=== PATIENT | female | born 1965 | race Caucasian/White ===

== ENCOUNTER 2021-09-08 10:59 | Emergency (ER) | payer OTHER ==
[2021-09-08] MEDS ORDERED: Sodium Chloride 0.9% 10 ML Syringe FLUSH PRN (11:19)
[2021-09-08] MEDS ORDERED: Ondansetron 4 MG/2 ML SDV IVPUSH ONE (11:21)
[2021-09-08] MEDS ORDERED: Ketorolac 30 MG/ML SDV IVPUSH ONE (11:21)
[2021-09-08] MEDS ORDERED: Sodium Chloride 0.9% 1,000 ML IV SCH (11:30)
[2021-09-08] MEDS ORDERED: Iopamidol 755 Mg/ML 100 ML Bottle IV ONE (11:54)
[2021-09-08] MEDS: Morphine 2 MG/ML SYRINGE IVPUSH ONE ×2 (12:04→13:16)
[2021-09-08 13:37] VITALS: BP 128/74; PULSE 78
== END 2021-09-08 13:35 | disposition home or self-care (01) ==
LOC: FB.ED 10:59
DX: K57.32 Diverticulitis of large intestine without perforation or abscess without bleeding (principal); Z79.899 Other long term (current) drug therapy
CPT/HCPCS: 36410; 36415; 74177; 80053; 81001; 82150; 83690; 85025; 96374; 96375; 99283; 99284-25; J1885; J2270; J2405; J7030; Q9967

== ENCOUNTER 2022-01-12 06:52 | Day surgery (SDC) | payer OTHER ==
[~2022-01-12 06:52] MED LIST: Lactated Ringers 1,000 ML IV SCH; Sodium Chloride 0.9% 10 ML Syringe FLUSH PRN
[2022-01-12] MEDS ORDERED: Propofol 200 MG/20 ML SDV IV ONE (06:53)
[2022-01-12 15:48] VITALS: BP 155/77; PULSE 75
== END 2022-01-12 09:30 | disposition home or self-care (01) ==
LOC: FB.SDS 06:52
PROVIDERS: ATTEND Surgery
DX: Z12.11 Encounter for screening for malignant neoplasm of colon (principal); K57.30 Diverticulosis of large intestine without perforation or abscess without bleeding; K21.9 Gastro-esophageal reflux disease without esophagitis; F41.9 Anxiety disorder, unspecified; Z79.82 Long term (current) use of aspirin; Z79.899 Other long term (current) drug therapy; Z90.49 Acquired absence of other specified parts of digestive tract; Z90.710 Acquired absence of both cervix and uterus; Z98.890 Other specified postprocedural states
CPT/HCPCS: 00812-QZ; J2704; J7120